=== PATIENT | male | born 1945 | race Caucasian/White ===

== ENCOUNTER 2020-07-22 14:09 | Emergency (ER) | payer MEDICARE, OTHER ==
[2020-07-22] MEDS ORDERED: Diphtheria,Pertussis(Acell),Tetanus Vaccine 0.5 ML Syringe IM ONE (14:45)
--- NOTE | 2020-07-22 14:48 | EDM.PDOC ---
ED HPI GENERAL MEDICAL PROBLEM - General Chief Complaint: Lower Extremity Injury/Pain Stated Complaint: NAIL IN SIDE OF RT FOOT Time Seen by Provider: 07/22/20 14:38 Source of Information: Reports: Patient, RN Notes Reviewed History Limitations: Reports: No Limitations - History of Present Illness INITIAL COMMENTS - FREE TEXT/NARRATIVE: 75-year-old gentleman presents emergency department today following a nail puncture wound to his right foot, he admits his tetanus needs to be updated 1 hour prior no complaints - Related Data Allergies Allergy/AdvReac Type Severity Reaction Status Date / Time No Known Allergies Allergy Verified 07/22/20 14:35 Home Meds: Home Meds Aspirin 81 mg PO DAILY 07/22/20 [History] Past Medical History Cardiovascular History: Reports: Other (See Below) (History of pericarditis) - Infectious Disease History Infectious Disease History: Reports: Chicken Pox, Measles, Mumps Social & Family History - Tobacco Use Tobacco Use Status *Q: Never Tobacco User - Caffeine Use Caffeine Use: Reports: Coffee - Recreational Drug Use Recreational Drug Use: No Review of Systems - Review of Systems Review Of Systems: See Below Skin: Reports: Wound ED EXAM, GENERAL - Physical Exam Exam: See Below Free Text/Narrative:: Examination of the right foot he does have a puncture wound at approximately the MCP joint, he states the nail was intact he has no functional complaints full range of motion of all digits pedal pulses +2 bleeding is controlled Exam Limited By: No Limitations General Appearance: Alert, WD/WN, No Apparent Distress Course - Vital Signs Last Recorded V/S: Last Vital Signs Temp 98.2 F 07/22/20 14:30 Pulse 69 07/22/20 14:30 Resp 16 07/22/20 14:30 BP 129/54 L 07/22/20 14:30 Pulse Ox 96 07/22/20 14:30 Departure - Departure Time of Disposition: 14:47 Disposition: Home, Self-Care 01 Condition: Fair Clinical Impression: Puncture wound of foot Qualifiers: Encounter type: initial encounter Laterality: right Qualified Code(s): S91.331A - Puncture wound without foreign body, right foot, initial encounter - Discharge Information Instructions: Puncture Wound Referrals: SANDY ZHANG MD [Other] Additional Instructions: Elected to prophylactically treat with antibiotics of levofloxacin 1 tablet once a day for 5 days, please followup with your primary care provider in 3-5 days if not better, please call return to the emergency department with worsening of symptoms. Sepsis Event Note (ED) - Focused Exam Vital Signs: Vital Signs Temp Pulse Resp BP Pulse Ox 07/22/20 14:30 98.2 F 69 16 129/54 L 96 - Assessment/Plan Plan: Assessment Acuity = acute Site and laterality = puncture wound right foot Etiology = nail Manifestations = none Location of injury = Home Lab values = none Plan Tetanus was updated today because concerned that this may have went into the joint elected to prophylactically treat with levofloxacin 500 mg once a day x5 days follow-up primary care 3 to 5 days if no improvement This note was dictated using [employer] voice recognition software please call with any questions on syntax or grammar.
== END 2020-07-22 15:21 | disposition home or self-care (01) ==
LOC: JP.ED 14:09
DX: S91.331A Puncture wound without foreign body, right foot, initial encounter (principal); Z79.82 Long term (current) use of aspirin; Z23 Encounter for immunization; W45.0XXA Nail entering through skin, initial encounter
CPT/HCPCS: 90471; 90715; 99282; 99283